=== PATIENT | male | born 1960 | race Caucasian/White ===

== ENCOUNTER → 2017-01-21 | Outpatient (CLI) | payer OTHER | LOC: CAT 08:47 | DX: Z13.6 Encounter for screening for cardiovascular disorders (principal) ==

== ENCOUNTER 2021-01-29 13:16 | Emergency (ER) | payer OTHER ==
[~2021-01-29] VITALS: Ht 185.4 cm; Wt 97.1 kg
[2021-01-29 13:21] VITALS: BP 138/82
[2021-01-29 14:04] LABS: BASOPHILS 0.7 % (0.0-2.0); EOSINOPHILS 2.6 % (0.0-3.0); HEMATOCRIT 41.4 % (42.0-52.0); LYMPHOCYTES 32.3 % (24.0-44.0); MCH 31.1 pg (26.0-34.0); MCHC 33.9 g/dL (28.0-37.0); MCV 91.7 fL (80.0-100.0); MONOCYTES 10.4 % (1.0-8.0); PLATELET COUNT 331 thou/uL (150-400); RBC 4.51 mil/uL (4.50-6.00); RDW 13.5 % (10.5-14.5); WBC 5.5 thou/uL (4.0-11.0)
[2021-01-29 14:09] LABS: ANION GAP 8 mmol/L (7-16); BUN 15 mg/dL (7-18); CALCIUM 8.9 mg/dL (8.5-10.1); CHLORIDE 108 mmol/L (98-107); CO2 27 mmol/L (21-32); CREATININE 0.9 mg/dL (0.7-1.3); GLUCOSE 121 mg/dL (74-106); SODIUM 143 mmol/L (136-145)
[2021-01-29] MEDS ORDERED: PRILOSEC2.5 MG (14:16)
[2021-01-29] MEDS ORDERED: ASA81BEC PO (14:16)
[2021-01-29] MEDS ORDERED: LIPITOR 20 MG T20 M1 PO (14:16)
[2021-01-29 14:19] LABS: ALBUMIN 3.6 g/dL (3.4-5.0); SGOT 20 U/L (15-37); SGPT 24 U/L (16-63); TOTAL BILIRUBIN 0.6 mg/dL (0.2-1.0); TOTAL PROTEIN 7.7 g/dL (6.4-8.2); TROPONIN-I <0.06 ng/mL (<0.06)
[2021-01-29] MEDS ORDERED: ZPAK PO (15:59)
[2021-01-29] MEDS ORDERED: PREDNISONE 10 M10 M1 PO (15:59)
[2021-01-29] MEDS ORDERED: PROAIR HFA8.5 GM INH (15:59)
--- NOTE | 2021-01-30 07:23 | EKG ---
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
== END 2021-01-29 16:16 | disposition home or self-care (01) ==
LOC: ER 13:16
PROVIDERS: Physician Assistant
DX: J98.01 Acute bronchospasm (principal); Z20.822 Contact with and (suspected) exposure to COVID-19; Z79.82 Long term (current) use of aspirin; Z79.899 Other long term (current) drug therapy